=== PATIENT | female | born 1930 | race Caucasian/White ===

== ENCOUNTER 2017-09-03 15:03 | Inpatient (IN) | payer MEDICARE, OTHER ==
[~2017-09-03] VITALS: Ht 147.3 cm; Wt 79.4 kg
[~2017-09-03 15:03] MED LIST: ALBUTEROL SULF8.5 GM INH; ALEVE220 MG PO; ASPIR 8181 MG PO; CEFPODOXIME PR200 MG PO; CIPROFLOXACIN500 MG PO; CITRACAL + BON1 EACH PO; CITRACAL + D M1 EACH PO; COMBIVENT RESPIM4 GM INH; DILTIAZEM 24HR120 MG PO; DILTIAZEM 24HR240 M1 PO; DILTIAZEM 24HR240 MG PO; FELODIPINE ER5 MG PO; FUROSEMIDE20 MG/2 ML PO; GABAPENTIN100 MG PO; GLIPIZIDE XL10 MG PO; LANTUS SOL100 UNIT/1 SQ; LANTUS100 UNITS/ SUB-Q; LISINOPRIL-HCT1 EACH PO; LISINOPRIL10 MG PO; LORAZEPAM0.5 MG PO; MAPAP325 MG PO; MELATONIN3 MG PO; METFORMIN HCL500 MG PO; METOPROLOL SUC100 MG PO; METOPROLOL SUCC25 MG PO; METOPROLOL SUCC50 MG PO; METOPROLOL TART25 MG PO; NITROFURANTOIN100 M1 PO; NORCO 5-325 TA1 EACH PO; OMEPRAZOLE20 MG PO; POTASSIUM CHLO10 MEQ PO; TORSEMIDE5 MG PO; UNITHROID100 MCG PO; WOMEN'S DAILY1 EACH PO; ZOFRAN ODT4 MG SL
--- NOTE | 2017-09-03 19:02 | NUR ---
PT ARRIVED VIA STRETCHER FROM ED. DAYSJENNI RN IS HELPING PT GET SETTLED IN.
--- NOTE | 2017-09-03 21:13 | NUR ---
PATIENT 1 PERSON ASSIST TO THE BEDSIDE COMMODE USING WALKER. RN CHEYANNE HELPED PATIENT FROM BEDSIDE COMMOED TO SITTING BY THE BED. RN CHEYANNE GAVE JELLO, CRACKERS AND PEANUT BUTTER. PATIENT ALSO ASKED MILK. CAll button within reach.
--- NOTE | 2017-09-03 21:40 | NUR ---
ROUNDING CHARGE NURSE NOTE: PT ADMITED TO ROOM 112 VIA STRETCHER FROM ED. TELE#[address], RECEIVED 1LITER IVF BOLUS AND 1GR ROCEPHIN IV, TOLERATED WELL. HAS BEEN UP TO BSC, VOIDED YELLOW URINE. ONE PERSON ASSIST. TOLERATED WELL. CBG 90 RECEIVED CRACKERS, PB AND MILK AT HER REQUESTS. PT DECLINES TO USE HOSP GOWN OR HOSP NON SKID SOCKS. WEARING PERSONAL NON SKID SOCKS. PT WAS PLACED ON 1L O2 NC ON ADMIT DUE TO HER SATS WERE 80% ON ROOM AIR AND AFTER CDB 10X'S IT ONLY WENT UP TO 84%. SATS 93-94% ON IL, DENIES SOB.
--- NOTE | 2017-09-03 21:50 | NUR ---
IN ROOM TO ASSESS PT AND GIVE MEDICATIONS. PT DENIES PAIN AND NEEDS AT THIS TIME. CALL LIGHT IS WITHIN REACH.
--- NOTE | 2017-09-03 23:20 | NUR ---
PT IS RESTING IN BED WITH EYES CLOSED, RESPIRATIONS EVEN AND NONLABORED WITH CALL LIGHT IN REACH.
--- NOTE | 2017-09-04 01:16 | NUR ---
HELPED PT TO BEDSIDE COMMODE AND ADMINISTERED TYLENOL FOR BACK/NECK/HEAD ACHE. ALSO GAVE PT A HEAT PAD FOR HER NECK. PT IS SITTING AT THE BEDSIDE AT THIS TIME WITH CALL LIGHT WITHIN REACH.
--- NOTE | 2017-09-04 03:22 | NUR ---
PT IS RESTING WITH EYES CLOSED, RESPIRATIONS EVEN AND NONLABORED. CALL LIGHT IS WITHIN REACH.
--- NOTE | 2017-09-04 04:36 | NUR ---
PT IS REQUESTING TYLENOL FOR A HEADACHE. ADVISED PT THE EARLIES SHE CAN HAVE ANOTHER IS IN ABOUT 15 MINUTES. WILL RETURN WITH TYLENOL AND HEAT PAD.
--- NOTE | 2017-09-04 04:55 | NUR ---
ADMINISTERED TYELONOL FOR PT'S HEADACHE AND BROUGHT HER A NEW HEAT PAD. PT DENIES FURTHER NEEDS AT THIS TIME. CALL LIGHT IS WITHIN REACH.
--- NOTE | 2017-09-04 06:45 | NUR ---
PT REPORTS, HAVING A HEAVY CHEST AND NAUSEA AND AN OVER ALL FEELING ON NOT FEELING WELL. TOOK VS AND ADMINISTERED ZOFRAN. WILL NOTIFY DR DUMONT AND CONTINUE TO MONITOR.
--- NOTE | 2017-09-04 07:29 | NUR ---
SPOKE WITH DR DUMONT ABOUT PT'S SX, NO FURTHER ORDERS AT THIS TIME.
--- NOTE | 2017-09-04 07:35 | NUR ---
PT APPEARS TO BE SLEEPING, CALL BUTTON IN HAND. BOARD UPDATED.
--- NOTE | 2017-09-04 08:30 | NUR ---
PATIENT USED CALL BUTTON. FINISHED WITH BREAKFAST, ASSISTED BACK INTO BED, PATIENT ALSO USED TRAPEZE ABOVE BED WITH BOTH HANDS. FRESH ICE WATER AND HOT PACK FOR NECK. TRASH EMPTIED AND ROOM TIDIED.ENRRIQUE ALDANA IN ROOM. CALL LIGHT IN REACH. NO OTHER NEEDS.
--- NOTE | 2017-09-04 08:43 | NUR ---
PT IN BED. AWAKE, ALERT, ORIENTED X 3. DENIED PAIN OR NAUSEA AT THIS TIME. GAVE AM MEDICATIONS. PERSONAL SUPPLIES AND CALL LIGHT IN REACH.
--- NOTE | 2017-09-04 09:20 | NUR ---
MED REC COMPLETE WITH [facility] REFILL HISTORY.
--- NOTE | 2017-09-04 10:39 | NUR ---
PT AMBULATED IN HALLS WITH PHYSICAL THERAPIST. PER PHYSICAL THERAPIST, PT AMBULATED ON RA, AND SPOT CHECKS OF OXYGEN SATURATION LEVEL WERE WNL. PT REMAINS ON RA. WILL CONTINUE TO MONITOR.
--- NOTE | 2017-09-04 10:50 | NUR ---
PT SITTING UP AT EDGE OF BED, VISITING WITH FRIENDS. PERSONAL SUPPLIES AND CALL LIGHT IN REACH. PT DENIED NEEDS.
--- NOTE | 2017-09-04 11:45 | NUR ---
1PERSON ASSIST TO BEDSIDE COMODE. RN KATYA IN ROOM, PT STATES SHE HAS HAD THE SAME DR FOR 2 1/2 YEARS AND IS VERY INTERESTED INTERESTED IN THE INFO KATYA JUST GAVE HER REGARDING DIABETES CONTROL. PT SITTING ON EDGE ON BED FOR LUNCH. THIS BUFFING MACHINE OPERATOR SEMIAUTOMATIC GATHERED HAIR AND ORAL CARE PRODUCTS FOR AFTER LUNCH SHOWER. CALL LIGHT IN REACH. NO OHTER NEEDS AT THIS TIME.
--- NOTE | 2017-09-04 12:40 | NUR ---
SALINE LOCKED PT'S IV, PT UP TO SHOWER WITH ASSISTANCE FROM TOBY MONTEMAYOR.
--- NOTE | 2017-09-04 13:07 | NUR ---
1 PERSON ASSIST TO SHOWER. THIS FRONT WINDOW CASHIER WASHED AND DRIED PT THOROUGHLY BEFORE DRESSING. PATIENT WEARING HOSPITAL GOWN. HER GOWN AND HOUSE COAT ARE IN PERSONAL BAG IN CLOSET, ALONG WITH LANYARD AND KEYS. PT BACK TO BED. VERY SATISFIED WITH SHOWER. CALL LIGHT IN REACH.
--- NOTE | 2017-09-04 13:38 | NUR ---
PT IN BED, WATCHING THE WEATHER CHERYL ON TV. PERSONAL SUPPLIES IN REACH, IS CALL BUTTON. PT STATED THAT SHE ENJOYED HER SHOWER.
--- NOTE | 2017-09-04 14:24 | NUR ---
PATIENT APPEARS TO BE SLEEPING SOUNDLY IN BED. PATIENT CLAIMS THIS NAP WAS THE BEST SLEEP SHES HAD IN A LONG TIMEVITALS AND I/OS DONE. DIETARY IN ROOM. CALL LIGHT IN REACH.
--- NOTE | 2017-09-04 15:35 | NUR ---
PT IN BED, C/O HEADACHE. GAVE ACETAMINOPHEN 500 MG PO PRN C/O 6/[address] DUMONT IN TO SEE PT. STATED THAT PT IS NOT GOING TO DISCHARGE TO HOME TODAY, BUT MAY POTENTIALLY DISCHARGE TO HOME TOMORROW.
--- NOTE | 2017-09-04 15:37 | NUR ---
PER DR. DUMONT, IVF RATE DECREASED TO 50 CC/HR.
--- NOTE | 2017-09-04 16:18 | NUR ---
PT UP, AMBULATED IN HALLS WITH TOBY MONTEMAYOR. TOLERATED WELL.
--- NOTE | 2017-09-04 16:33 | NUR ---
1 PERSON ASSIST PATIENT- AMBULATION IN ORTEZ @ 15 MIN. PT TOLERATED WELL. NAUSEOUS UPON RETURN TO ROOM. PT TALKED TO THIS INNER TUBE CUTTER FOR SEVERAL MINUTES ABOUT HER CHILDREN AND . SITTING ON EDGE OF BED UP TO TABLE UNTIL DINNER. FRESH ICE WATER AND WRM BLANKET FOR SHOULDERS. CALL LIGHT IN REACH.
--- NOTE | 2017-09-04 17:10 | NUR ---
PATIENT CALLED FOR ASSTANCE TO COMMODE. TOBY WOO FOR BLOOD SUGAR CHECK. PATIENT ON EDGE OF BED WITH TABLE ON FRONT FOR DINNER. VITALS DONE. PATIENT IS COLD, ROBE ON AND BLANKET ON LEGS. ROOM IS 75 DEGREES. CALL LIGHT IN REACH.
--- NOTE | 2017-09-04 17:42 | EKG ---
[facility] [address] [place] [address] Signed Sinus rhythm with occasional premature ventricular complexes Left axis deviation Right bundle branch block Minimal voltage criteria for LVH, may be normal variant Abnormal ECG When compared with ECG of 03-OCT-2016 18:53, premature atrial complexes are no longer present Confirmed by ANTWAN DUMONT MD ([id number]) on 09/04/2017 5:42:27 PM Electronically Signed By: ANTWAN DUMONT MD 09/04/17 1742 PATIENT NAME: KETTY AMADOR Electrocardiogram DATE OF : [birth year] PHYSICIAN: ANTWAN DUMONT MD REPORT #: [id number] REPORT IS CONFIDENTIAL AND NOT TO BE RELEASED WITHOUT AUTHORIZATION
--- NOTE | 2017-09-04 17:57 | NUR ---
PATIENT CALLED TO BE ASSISTED BACK TO BED AFTER DINNER. STILL VERY COLD. WARM BLANKET AND HOT PACK ON BACK OF NECK. PILLOW UNDER LEGS. RN KATYA IN ROOM TALKING TO PT. CALL LIGHT IN REACH. NO OTHER NEEDS AT THIS TIME.
--- NOTE | 2017-09-04 18:38 | NUR ---
PT HAS LR INFUSING AT 50 CC/HR. GAVE ACETAMINOPHEN THIS AFTERNOON FOR C/O HEADACHE. PT UP WITH 1 PERSON ASSIST WITH FWW. AMBULATED IN HALLS X 2. ADA DIET, TOLERANCE FAIR TO GOOD.
--- NOTE | 2017-09-04 19:00 | NUR ---
IN ROOM FOR REPORT, PT IS AWAKE IN BED AND HAS A VISITOR IN THE ROOM. PT DENIES NEEDS AT THIS TIME. CALL LIGHT IS WITHIN REACH.
--- NOTE | 2017-09-04 19:40 | NUR ---
SPOKE WITH DR DUMONT ABOUT GETTING THE PT 3 MG MELATONIN AT HS, PT STATES SHE TAKES IT AT HOME. HE WILL PUT THE ORDER IN.
--- NOTE | 2017-09-04 21:58 | NUR ---
HELPED PT TO RESTROOM AFTER MEDICATIONS WERE GIVEN AND ASSESSMENT COMPLETE. PT IS BACK TO BED AND HAS FRESH WATER AT BEDSIDE. CALL LIGHT IS WITHIN REACH.
--- NOTE | 2017-09-04 22:52 | NUR ---
Medicated with tylenol 500mg po c/o 5/10 h/a. In bed, no other requests
--- NOTE | 2017-09-05 00:12 | NUR ---
PT STATES SHE STILL FEELS OFF AND HAS NAUSEA. ADMINISTERED ZOFRAN AND BROUGHT PT SUGAR FREE JELLO, PEANUT BUTTER AND CRACKERS. PT DENIES FURTHER NEEDS AT THIS TIME.
--- NOTE | 2017-09-05 00:34 | NUR ---
PATIENT CALLED WANTS TO BE BACK IN BED FROM SITTING. NO OTHER NEEDS. CALL BUTTON WITHIN REACH.
--- NOTE | 2017-09-05 02:45 | NUR ---
PATIENT CALLED TO USE THE BATHROOM. EVERYTIME THIS SEED PRODUCTION FIELD SUPERVISOR GETS IN THE PATIENT'S ROOM, THE PATIENT IS ALREADY UP SITTING BY THE BED. USING WALKER 1 PA. PATIENT ALWAYS C/O DIZZINES MOSTLY WHEN SHE LAYS DOWN ON BED. ENRRIQUE RANDALL NOTIFIED. CALL BUTTON WITHIN REACH.
--- NOTE | 2017-09-05 04:11 | NUR ---
PT IS RESTING WITH EYES CLOSED, RESPIRATIONS EVEN AND NONLABORED. CALL LIGHT IS WITHIN REACH.
--- NOTE | 2017-09-05 05:25 | NUR ---
PT HAD DIFFICULT SLEEPING EVEN WITH THE 3MG MELATONIN. BS AT HS WAS 158. PT HAD NAUSEA ONCE REQUIRING ZOFRAN. LR IS INFUSING AT 50 MLS/HR. PT IS A 1PA WITH WALKER TO RESTROOM. PT CONTINUES TO HAVE ABDOMINAL PAIN ALONG WITH BACK/NECK PAIN AND HAD TYLENOL ONCE DURING THE NIGHT.
--- NOTE | 2017-09-05 07:04 | NUR ---
HELPED PT TO RESTROOM AND BACK TO BED.
--- NOTE | 2017-09-05 07:10 | NUR ---
RECIEVED BEDSIDE REPORT FROM ENRRIQUE RANDALL. PT AWAKE, IN BED. PERSONAL SUPPLIES AND CALL BUTTON IN REACH. DENIED NEEDS AT THIS TIME.
--- NOTE | 2017-09-05 07:31 | NUR ---
PT IN BED, BROUGHT PT HER BREAKFAST. CHECKED PT'S B.
--- NOTE | 2017-09-05 07:52 | NUR ---
PT SITTING UP AT EDGE OF BED, EATING BREAKFAST. PERSONAL SUPPLIES AND CALL LIGHT IN REACH.
--- NOTE | 2017-09-05 08:35 | NUR ---
RT IN ROOM WORKING WITH PATIENT AT THIS TIME.
--- NOTE | 2017-09-05 10:00 | NUR ---
PATIENT RESTING IN BED WITH EYES CLOSED. PT IN ROOM ASKED FOR HELP WAKING PATIENT UP. THIS ASSOCIATE FINANCIAL ADVISOR WAS ABLE TO WAKE PATIENT UP BY SPEAKING LOUDLY AND RUBBING PATIENTS ARM. PATIENT WAS STARTLED AND SEEMED TO BE UPSET THAT SHE WAS BEING WOKEN UP. PATIENT'S FACE IS FLUSHED AND WARM TO TOUCH. NO FEVER. PATIENT WASHED HANDS AND FACE WITH COOL WASH CLOTH. PT IN ROOM TO WORK WITH PATIENT. THIS ASSOCIATE FINANCIAL ADVISOR TALKED TO PATIENT ABOUT WASHING UP LATER TODAY. NO OTHER NEEDS AT THIS TIME.
--- NOTE | 2017-09-05 10:24 | NUR ---
PT WORKED WITH PHYSICAL THERAPIST, AMBULATED IN HALLS WITH FWW WITH 1 PERSON ASSIST. PT NOW SITTING UP AT EDGE OF BED. PERSONAL SUPPLIES AND CALL LIGHT IN REACH.
--- NOTE | 2017-09-05 10:30 | NUR ---
SPOKE WITH PATIENT AT LENGTH REGARDING LIVING SITUATION. PATIENT LIVES IN HOME WITH RAMP. SHE USES A SEATED WALKER IN THE HOME AND WHEN SHE GOES OUT. PATIENT STILL DRIVES IN TOWN. STATES IF SHE NEEDS OUT OF TOWN SHE HAS SONS OR FRIENDS DRIVE. PATIENT STATES BOTH SONS WORK. ONE WORKS NIGHTS IN [employer] AND SLEEPS DURING THE DAY. THE OTHER WORKS DAYS IN TOWN. ONE SON WAS RECENTLY TREATED FOR COLON CANCER. SHE STATES THEY HELP EACH OTHER OUT. SHE STATES HER SONS SHOP AND FIX MOST MEALS. PATIENT STATES SHE IS . SHE SEES NO BARRIERS TO HOME AT DISCHARGE AT THIS TIME. SHE DID STATE THAT THEY THINK SHE MAY NEED GALLBLADDER SURGERY AT SOME POINT, SHE HAD QUESTIONS REGARDING THIS THAT WERE ANSWERED.
--- NOTE | 2017-09-05 11:45 | NUR ---
THIS GREENHOUSE STAFF ASSISTED PATIENT FROM THE RESTROOM TO HER BED. PATIENT IS SITTING ON THE SIDE OF HER BED. RN IN ROOM. THIS GREENHOUSE STAFF ORDERED LUNCH FOR PATIENT. CALL LIGHT WITHIN REACH. NO OTHER NEEDS AT THIS TIME.
--- NOTE | 2017-09-05 11:56 | NUR ---
PT SITTING UP AT EDGE OF BED. REPORTED THAT SHE TOOK A NAP THIS MORNING, AND WHEN SHE WOKE UP, CNAs AND CLAUDIO PHYSICAL THERAPIST WERE IN ROOM, AND THIS "STARTLED" HER. PT STATED THAT SHE AMBULATED IN HALLS WITH CLAUDIO PHYSICAL THERAPIST. PERSONAL SUPPLIES IN REACH, IS CALL LIGHT.
--- NOTE | 2017-09-05 12:26 | NUR ---
SET UP PATIENT FOR LUNCH AT BEDSIDE. PATIENT REFUSED SHOWER AND CHANGE OF GOWN DUE TO HAVING ONE YESTERDAY. TOOTHBRUSH AND TOOTHPASTE SET UP IN BATHROOM FOR ORAL CARE NEXT TIME PATIENT IS UP. CALL LIGHT IN REACH, NO OTHER NEEDS AT THIS TIME.
--- NOTE | 2017-09-05 12:27 | NUR ---
PATIENT REQUESTED A RELEASE OF INFORMATION SO SHE SHOULD HAVE A COPY OF HER MEDICAL RECORD FOR THIS STAY SENT TO HER AT HOME. MELLISA COMPLETED, SIGNED AND TURNED IN TO MEDICAL RECORDS.
[2017-09-05] MEDS ORDERED: CEPHALEXIN500 MG PO ×2 (13:13→13:17)
--- NOTE | 2017-09-05 13:30 | NUR ---
SPOKE WITH DR. DUMONT, RECIEVED VERBAL ORDER TO GIVE IV ROCEPHIN SCHEDULED FOR 1700 NOW.
--- NOTE | 2017-09-05 13:46 | NUR ---
PATIENT UP TO BATHROOM AND BACK TO BED WITH 1 PERSON ASSIST AND FRONT WHEEL WALKER. REPOSITIONED PATIENT TO RIGHT SIDE. PILLOW UNDER PATIENTS KNEES. CALL LIGHT IN PLACE. NO OTHER NEEDS AT THIS TIME.
--- NOTE | 2017-09-05 14:04 | NUR ---
GAVE PT DISCHARGE INSTRUCTIONS. QUESTIONS ASKED AND ANSWERED. PT VERBALIZED UNDERSTANDING. THIS RN CALLED REBECCA, PHARMACIST TO LET HER KNOW PT IS READY FOR EDUCATION REGARDING MEDICATIONS. REBECCA VERBALIZED UNERSTANDING.
--- NOTE | 2017-09-05 15:11 | NUR ---
ASSISTED PT IN CHANGING INTO STREET CLOTHING AND GATHERING PERSONAL SUPPLIES. PT SITTING UP AT EDGE OF BED.
== END 2017-09-05 15:20 | disposition home or self-care (01) | DRG 690 ==
LOC: ED 15:03 → MS 15:04 → ED 18:00 → MS 18:00
PROVIDERS: ADMIT Internal Medicine
DX: N10 Acute pyelonephritis (principal); B96.20 Unspecified Escherichia coli [E. coli] as the cause of diseases classified elsewhere; I10 Essential (primary) hypertension; E11.9 Type 2 diabetes mellitus without complications; R00.1 Bradycardia, unspecified; K21.9 Gastro-esophageal reflux disease without esophagitis; E03.9 Hypothyroidism, unspecified; G89.4 Chronic pain syndrome; Z88.0 Allergy status to penicillin; Z79.4 Long term (current) use of insulin; Z79.84 Long term (current) use of oral hypoglycemic drugs
CPT/HCPCS: 74176; 80048; 80053; 81001; 83690; 83735; 85025; 87077; 87088; 87186; 87502; 93005; 93010; 97110; 97116; 97162; J0696; J1650; J2405; J7040; J7120

== ENCOUNTER 2017-09-24 18:52 | Observation (INO) | payer MEDICARE, OTHER ==
[~2017-09-24] VITALS: Ht 147.3 cm; Wt 79.8 kg
--- OUTSIDE RECORDS SUMMARY | ~2017-09-24 | XMS | Clinical Summary ---
Demographics + + + | Home Phone | | + + + | Preferred Language | Unknown | + + + | Marital Status | | + + + | Samaritan Affiliation | 1001 | + + + | Race | Unknown | + + + | Ethnic Group | Unknown | + + + Author + + + | Author | [employer] | + + + | Organization | [employer] | + + + | Address | Unknown | + + + | Phone | Unavailable | + + + Support + + + + + | Name | Relationship | Address | Phone | + + + + + | Chadwick Vázquez | ECON | [place], | | | | | [place] [address] | | + + + + + Care Team Providers + +------+ + | Care Residential Therapist Name | Role | Phone | + +------+ + | Damion Quispe MD | PP | | + +------+ + Allergies Not on File Current Medications Not on file Active Problems Not on file Social History + +-------+ +--------+------+ | Tobacco Use | Types | Packs/Day | Years | Date | | | | | Used | | + +-------+ +--------+------+ | Never Assessed | | | | | + +-------+ +--------+------+ + + + | Sex Assigned at | Date Recorded | | | | + + + | Not on file | | + + + Plan of Treatment Not on file Results Not on filefrom Last 3 Months"
--- OUTSIDE RECORDS SUMMARY | ~2017-09-24 | XMS | Clinical Summary ---
Demographics + + + | Address | [address] | | | [place] [address] | + + + | Home Phone | | + + + | Preferred Language | Unknown | + + + | Marital Status | Single | + + + | Shinto Affiliation | ADV | + + + [...] [id number] [place] | | | | | [id number] | | + + + + + Care Team Providers + +------+ + | Care Chief Technical Officer Name | Role | Phone | + +------+ + | Damion Quispe MD | PP | Unavailable | + +------+ + Source Comments [facility] is fully live on both [facility] and [facility] Allergies No Known Allergies Current Medications + [...]
[~2017-09-24 18:52] MED LIST changes: +CEPHALEXIN500 MG PO
[2017-09-24] MEDS ORDERED: CITRACAL-VIT D1 EAC1 PO (19:35)
[2017-09-24] MEDS ORDERED: COL-RITE100 MG PO (19:36)
[2017-09-24] MEDS ORDERED: REFRESH TEARS15 ML OU (19:36)
--- NOTE | 2017-09-24 23:10 | NUR ---
PT ARRIVED ON STRETCHER, ON 2 LNC. PT USED COMMODE AND IS BACK IN BED. SHE ATE SOME CRACKERS AND PEANUT BUTTER. PT IS ORIENTED TO ROOM AND HAS NO COMPLAINTS OF PAIN OR FURTHER NEEDS.
--- NOTE | 2017-09-24 23:25 | NUR ---
VITALS DONE AND CHARTED. HELPED PT PUT ON ATTENDS AND USE THE BEDSIDE COMMODE. HELPED HER BACK TO BED. BEDSIDE TABLE AND CALL LIGHT WITHIN REACH. PER PT REQUEST WE GOT HER CRACKER AND PEANUT BUTTER. ALSO FRESH ICE WATER GIVEN.
--- NOTE | 2017-09-25 00:30 | NUR ---
PATIENT RESTING IN BED, BREATHING IS EVEN AND UNLABORED. DENIES NEEDS AT THIS TIME. ASSESSMENT DONE, CALL LIGHT WITHIN REACH.
--- NOTE | 2017-09-25 01:54 | NUR ---
VITALS AND I&OS DONE AND CHARTED.BEDSIDE TABLE AND CALL LIGHT WITHIN REACH.
--- NOTE | 2017-09-25 02:04 | NUR ---
PATIENT RESTING COMFORTABLY IN BED, BREATHING IS EVEN AND UNLABORED. FLACC SCORE OF 0. CALL LIGHT WITHIN REACH.
--- NOTE | 2017-09-25 03:07 | NUR ---
PATIENT REPORTS 7/10 HEADACHE, PRN TYLENOL GIVEN AND HOTPACK FOR NECK, PATIENT STATES "THAT IS WHAT I DO AT HOME AND IT SEEMS TO HELP." DENIES FURTHER NEEDS. CALL LIGHT WITHIN REACH.
--- NOTE | 2017-09-25 05:49 | NUR ---
PATIENT SITTING IN CHAIR, BREATHING IS EVEN AND UNLABORED. REPORTS NAUSEA, PRN ZOFRAN GIVEN. DENIES FURTHER NEEDS. CALL LIGHT WITHIN REACH.
--- NOTE | 2017-09-25 06:00 | NUR ---
PATIENT'S NIGHT WAS UNEVENTFUL. SHE HAS BEEN RESTING THROUGHOUT SHIFT. VSS, URINE OUTPUT QS. LUNGS ARE CLEAR, REMAINS ON 2L O2. REDDNENED RIGHT LEG NOTED, WARM TO TOUCH, RECEIVING IV ABX. SBA TO BEDSIDE COMODE, INCONTINENT OF URINE AT TIMES. IV FLUIDS INFUSING. NO ACUTE CHANGES.
--- NOTE | 2017-09-25 06:43 | NUR ---
PATIENT RESTING COMFORTABLY IN BED, BREATHING IS EVEN AND UNLABORED. FLACC SCORE OF 0. REMAINS ON 2L O2. UPDATED DR. CAMACHO REGARDING PATIENT'S CONTINUED HEADACHE WITHOUT RELIEF FROM TYLENOL. RECEIVED ORDER FOR PRN MOTRIN. CALL LIGHT WITHIN REACH.
--- NOTE | 2017-09-25 07:39 | NUR ---
REPORT RECEIVED FROM DEREK RN OUTSIDE PATIENT ROOM TO ALLOW PATIENT TO SLEEP. 2L [address] NC [address]. ALL QUESTIONS ANSWERED. NO NEEDS AT THIS TIME.
--- NOTE | 2017-09-25 07:57 | NUR ---
PT IS BACK TO BED FROM COMMODE. PT COMPLAINS OF BEING WEAK AND STATES, "IT'S MY BLOOD SUGAR, I KNOW IT IS." BLOOD SUGAR WAS TAKEN AND DOCUMENTED. BS WAS 130, WILL INFORM RN. INFORMED PT TO CALL IF SHE NEEDS ANYTHING. CALL LIGHT IS IN REACH.
--- NOTE | 2017-09-25 08:57 | NUR ---
PT C/O CHEST HEAVINESS. HOSPITALIST NOTIFIED. EKG ORDERED AND D/C IVF. PT SALINE LOCKED. RESP THERAPIST DOING EKG NOW.
[2017-09-25] MEDS ORDERED: NORVASC2.5 MG PO (10:13)
--- NOTE | 2017-09-25 10:14 | NUR ---
MED REC COMPLETE
--- NOTE | 2017-09-25 10:46 | NUR ---
PT SLEEPING COMFORTABLY IN BED AT THIS TIME. LIGHTS DIMMED AND DOOR SLID CLOSED 3/[address] TO ALLOW QUIET REST TIME.
--- NOTE | 2017-09-25 13:19 | NUR ---
pt sleeping in bed with lights dimmed.
--- NOTE | 2017-09-25 13:38 | NUR ---
PATIENT IN BED, DID VS, PATIENT SAID SHE NEEDED TO USE THE RESTROOM, SAID SHE WAS INCONTINENT BUT THERE WAS NOTHING IN HER UNDERWEAR.
--- NOTE | 2017-09-25 14:57 | NUR ---
pt sitting up in recliner on phone talking to friend/family member. TOBY Camacho gave patient shower.
--- NOTE | 2017-09-25 18:16 | NUR ---
PT ASSISTED BACK TO BED FROM BATHROOM BY ROUND CUTTER OPERATOR. PATIENT PARTICULAR ABOUT PLACEMENT OF BODY AND PERSONAL ITEMS. PHONE AND CALL LIGHT WITHIN REACH. PATIENT WOULD LIKE TO REST AFTER VISITORS LEFT. NO BEDSIDE REPORT REQUESTED IF PATIENT SLEEPING.
--- NOTE | 2017-09-25 18:25 | NUR ---
SBA/1PA FWW. UP TO BATHROOM/BSC. ORIENTED. ACCU CHECKS. ADA DIET. INCONTINENT OF URINE AT TIMES. ATTENDS IN PLACE. ROCEPHIN DAILY. SALINE LOCKED. PT/OT. TYLENOL GIVEN FOR HEADACHE THIS EVENING.
--- NOTE | 2017-09-25 19:00 | NUR ---
PT IS RESTING AND REQUESTED NOT TO BE WOKEN UP FOR SHIFT CHANGE. RECEIVED REPORT AND WILL CHECK IN WITH HER LATER.
--- NOTE | 2017-09-25 20:22 | NUR ---
IN PT ROOM, VITALS COMPLETE AT THIS TIME WNL. HANDOFF REPORT RECEIVED FROM ENRRIQUE RANDALL AT THIS TIME, PT ANXIOUS RE VISITORS TODAY, C/O SOME HEAVINESS IN CHEST. DISCUSSED VITALS WNL, UPDATED RE PLAN OF CARE. PT LYING IN BED, REQUESTING ICE WATER, NO ADDL REQUESTS. CALL LIGHT IN REACH.
--- NOTE | 2017-09-25 20:40 | NUR ---
PT ASSESSMENT COMPLETE. PT ALERT AND ORIENTED X 3, C/O FEELING WARM, AFEBRILE AT THIS TIME. ICE PACK GIVEN TO PT, THERMOSTAT ADJUSTED. LUNGS CLEAR THROUGHOUT ALL LOBES. PT DENIES NAUSEA. PT C/O CONSTIPATION, NOT BEING ABLE TO HAVE REGULAR BM. NIO BOWEL ROUTINE ORDERED. PT GIVEN ICE WATER REQUESTED. CALL LIGHT IN REACH, NO ADDL REQUESTS AT THIS TIME. LEGS ELEVATED WITH BED. REDNESS NOTED IN RIGHT LOWER EXTREMITY. TRACE EDEMA NOTED.
--- NOTE | 2017-09-25 21:42 | NUR ---
HELPED PT GO TO THE BATHROOM AND BACK TO THE CHAIR WITH HER WALKER. FRESH WATER GIVEN. BEDSIDE TABLE AND CALL LIGHT WITHIN REACH.
--- NOTE | 2017-09-25 22:29 | NUR ---
HELPED PT BACK TO HER BED FROM THE CHAIR PER HER REQUEST. BEDSIDE TABLE AND CALL LIGHT WITHIN REACH.
--- NOTE | 2017-09-25 22:53 | NUR ---
IN PT ROOM FOR MEDICATION ADMINISTRATION, PRN EYE DROPS ADMINISTERED. PT ASSISTED TO REPOSITION IN BED W ADDITIONAL PILLOW. NO ADDITIONAL REQUESTS. CALL LIGHT IN REACH.
--- NOTE | 2017-09-26 01:43 | NUR ---
CALL LIGHT ANSWERED, PT C/O WHEEZING. SPO2 88% ON ROOM AIR, 2L OXYGEN BY NC BACK ON PT PT HAS REMOVED. SPO2 BACK TO 94% W OXYGEN ADMINISTRATION. PT GIVEN IS AND INSTRUCTED ON USE, 750 ML BEST EFFORT.
--- NOTE | 2017-09-26 02:07 | NUR ---
BACK IN PT ROOM WITH RT HAYDEE NICHOLE ASSESSMENT COMPLETE, LUNGS CLEAR THROUGHOUT ALL LOBES, OXYGEN TITRATED TO 1L, SPO2 97%. PT OUT OF ROOM FOR WALK AT THIS TIME WITH CHIKI KEBEDEW. SPO2 90% WITH AMBULATION. PT BACK IN ROOM, ASSISTED TO RESTROOM FOR VOID. INSTRUCTED TO USE CALL LIGHT. WILL CONTINUE TO MONITOR.
--- NOTE | 2017-09-26 02:16 | NUR ---
CALL LIGHT ANSWERED, PT ASSISTED BACK TO BED WITH DELIO FWW. PT ASSISTED TO REPOSITION. ON 1L OXYGEN BY NC. PERSONAL SUPPLIES AND CALL LIGHT IN REACH.
--- NOTE | 2017-09-26 04:21 | NUR ---
BELT WORKER SEPTEMBER REPORTED THAT PT C/O NECK PAIN. ADMINISTERED 650 MG PRN TYLENOL. PT LYING IN BED, HOB ELEVATED C/O COUGHING. PT USING IS, GIVEN FRESH ICE WATER. OXYGEN 1L NC ON. CALL LIGHT IS IN REACH.
--- NOTE | 2017-09-26 05:34 | NUR ---
PT USING CALL LIGHT THROUGHOUT SHIFT. C/O NECK PAIN, RECEIVED PRN TYLENOL X 1. PT C/O WHEEZING THROUGHOUT SHIFT DESPITE NO WHEEZES AUSCULTATED. PT ON 1L OXYGEN BY CHELSEA. DELIO WITH FWW TO RESTROOM FOR VOIDS, AND AMBULATED HALLWAY X 1. NO CHANGE IN REDNESS IN RLE, LEGS ELEVATED IN HOSPITAL BED.
--- NOTE | 2017-09-26 06:24 | NUR ---
CHECKED ON PT, PT SLEEPING, EYES CLOSED, BREATHING NON-LABORED, 1L OXYGEN NC ON.
--- NOTE | 2017-09-26 06:45 | NUR ---
CALL LIGHT ANSWERED, PT ASSISTED TO RESTROOM FOR VOID W FWW, SBA. PT INSTRUCTED TO USE CALL LIGHT WHEN FINISHED.
--- NOTE | 2017-09-26 08:31 | NUR ---
PATIENT UP TO THE BATHROOM WITH STAND BY ASSIST WITH FWW. PATIENT REFUSED SHOWER TODAY DUE TO HAVING ONE YESTERDAY.
--- NOTE | 2017-09-26 09:00 | NUR ---
MORNING ASSESSMENT AND MEDICATIONS DUE. PT UP IN BED, TALKING WITH HUMAN RESOURCES PSYCHOLOGIST AND RN. ASSESSMENT DONE. PIV WAS NOTED TO BE IN LEFT FORARM NOT LEFT AC. PT GERMANIA OUT IN PAIN WITH FLUSH. REDNESS NOTED. PIV DC'D PER PROTOCOL, WNL. NEW PIV STARTED PER PROTOCOL IN LEFT AC. MEDICATIONS GIVEN (SEE MAR). RT STOPPED BY TO TALK WITH PT. PT COMPLAINS OF BEING TOO TIRED TO WORK WITH RT. THIS RN OFFERED TO PUT A "NAP TIME" SIGN ON THE DOOR SO SHE WOULD NOT BE INTURRUPTED, BE DECLINES. BED RAILS UP. CALL LIGHT WITHIN REACH. PT WORRIED ABOUT IV. 2ND FLUSH DONE, BRISK BLOOD RETURN NOTED. PT REASSURED THAT PIV LOOKS GREAT, TAPE READJUSTED. PT STATES SHE HAS NO ADDITIONAL REQUESTS OR COMPLAINTS AT THIS TIME. BED RAILS UP. CALL LIGHT WITHIN REACH.
--- NOTE | 2017-09-26 10:07 | NUR ---
THIS RN TO BEDSIDE. PT FOUND UP IN RESTROOM WITHOUT OXYGEN IN PLACE. PT REPORTS FEELING WEEK. PT REMINDED THAT SHE NEEDS TO CALL FOR A NURSE WHEN GETTING OUT OF BED. NC BROUGHT TO RESTOROOM. PT STATES "NO, I'M NOT PUTTING THAT BACK ON. GET IT OUT OF HERE." O2 SATURATION MONITOR FOUND, PT O2 SAT AT 94%. THIS RN AGREES WITH PT TO LEAVE O2 OFF WHILE SITTING ON TOILET BUT REAPPLY O2 BY NC FOR AMBULATION.
--- NOTE | 2017-09-26 10:13 | NUR ---
PT READY TO MOVE BACK TO BED. O2 AT 2L NC APPLIED FOR AMBULATION. O2 SATURATION 98%. PT USES FWW BACK TO BED. PT ASKS TO SIT ON THE EDGE OF THE BED. PT STATES SHE MIGHT WANT TO MOVE BACK TO TOILET. CURTAIN STRETCHER WITH PT. PT STATES SHE WILL USE CALL LIGHT WHEN SHE IS READY TO USE TOILET AGAIN. CALL LIGHT WITHIN REACH.
--- NOTE | 2017-09-26 10:23 | NUR ---
THIS BATTER MIXER ASSISTED PATIENT TO THE RESTROOM. 1 PERSON SBA WITH FWW. THIS BATTER MIXER AND RN ASSISTED PATIENT FROM RESTROOM TO BED. PATIENT STATES THAT SHE FEELS WEAK. RN NOTIFIED AND RN IN ROOM TO ASSIST.
--- NOTE | 2017-09-26 10:38 | NUR ---
PT CONTINUES TO APPEAR ANXIOUS, PT IS RESTATING CONCERNS ("WHEN WILL I HAVE A BOWEL MOVMENET? WHAT ABOUT THIS THING IN MY ARM? (POINTS TO BLOOD BLISTER). I HAVE A LOT OF STRESSFUL THINGS GOING ON." CHARGE NURSE CONSULTED. THIS RN AND FOOD SERVICE MANAGER TO ROOM TO TALK WITH PT. PT EXPRESSESS RECENT STRESS IN HER LIFE STATING HER SON IS GOING THROUGH [facility]. PT DENIES FEELING STRESSED OR TENSE AT THIS TIME. PT STATES SHE HAD LORAZAPAM PERSCRIBED AFTER HER LAST HOSPITAL VISIT BUT "I HAVENT TAKEN IT AT ALL." PT STATES SHE RARELY SLEEPS FOR MORE THAN 2 HOURS. FALL PREVENTION POLICY REINFORCED WITH PT. PT VERBALIZES UNDERSTANDING OF FALL PREVENTION POLICY. PT DENIES THE NEED FOR ANTIANXIETY MEDICAITON AT THIS TIME. PT SITTING ON EDGE OF BED, O2 IN PLACE, 1L NC. CALL LIGHT WITHIN REACH.
--- NOTE | 2017-09-26 11:30 | NUR ---
PATIENT SITTIN UP IN CHAIR. OT IN ROOM. CALL LIGHT WITHIN REACH.
--- NOTE | 2017-09-26 11:44 | NUR ---
FOCUSED ASSESSMENT AND MEDICATIONS DUE. THIS RN TO BEDSIDE. PT UP WITH RT TO RESTROOM. PT BACK TO SIT ON EDGE OF BED. BED ALARM ON. ASSESSMENT DONE. INSULIN GIVEN (SEE MAR). PT EATING LUNCH. NEW WATER PROVIDED. BED ALARM ON. PT STATES NO ADDITIONAL REQUESTS OR COMPLAINTS AT THIS TIME. MAURA LIGHT WITHIN REACH.
--- NOTE | 2017-09-26 13:10 | NUR ---
PATIENT WORKING WITH PT.
--- NOTE | 2017-09-26 14:45 | NUR ---
PT CALL LIGHT ON. PT REQUESTS SOME TYLENOL FOR 4/10 HEADACHE PAIN. PT ALSO REPORTS ABDOMINAL PAIN "LIKE I USUALLY GET, IT COMES AND GOES" THAT TRAVELS STRAIGHT ACROSS HER ABDOMEN. PT REQUESTS THAT DR. HAMEED BE TOLD OF THIS DISCOMFORT. DR. HAMEED NOTIFIED PER PT REQUEST. BED RAILS UP, CALL LIGHT WITHIN REACH. PT STATES NO ADDITIONAL REQUESTS OR COMPLAINTS AT THIS TIME.
--- NOTE | 2017-09-26 15:45 | NUR ---
PT CALL LIGHT ON. PT STATES "I'M FEELING BLAH." PT CONTINUES TO REPORT "ACHING" PAIN ACROSS HER ABDOMEN AND A HEADACHE. ASSESSEMENT DONE. VITALS TAKEN. BED RAILS UP. CALL LIGHT DIRK REACH.
--- NOTE | 2017-09-26 16:00 | NUR ---
ASSITED PT TO BEDSIDE COMODE, GAIT STEADY. PT RETURNED TO SIDE OF BED TO EAT DINNER, CALL LIGHT WITHIN REACH, NO FURTHER REQUESTS AT THIS TIME.
--- NOTE | 2017-09-26 17:03 | NUR ---
PT HERE FOR CELLULITIS OF RIGHT FOOT AND UTI. SBA, FWW. ADA DIET, 1800 CALORIES. SMALL BM TODAY, SENNA AND MIRALAX GIVEN. 1L O2 NC. BLOOD SUGAR CHECKS AT MEALS. PIV IN LEFT AC, SL. PRN ZOFRAN, TYLENOL, AND MOTRIN. PT EXPERIENCED SOME INSOMNIA LAST NIGHT. NOTIFIED. PT USES CALL LIGHT AT TIMES, BED ALARM USED TODAY.
--- NOTE | 2017-09-26 17:38 | NUR ---
PT CALL LIGHT ON. PT REQUESTS EYE DROPS AND COOL WASHCLOTH FOR FACE. PROVIDED PER PT REQUEST. PT O2 NOT ON. PT AGREES TO WEAR O2 NC. RESONING EXPLAINED AND PT VERBALIZES UNDERSTANDING. PT ASSTED BACK TO BED. BED RAILS UP. CALL LIGHT WITHIN REACH.
--- NOTE | 2017-09-26 17:47 | NUR ---
PATIENT IS SITTING UP IN BED. RN IN ROOM. CALL LIGHT WITHIN REACH. NO OTHER NEEDS AT THIS TIME.
--- NOTE | 2017-09-26 19:05 | NUR ---
BEDSIDE REPORT RECEIVED FROM ENRRIQUE LUGO. PT AWAKE, IN BED, DROWSY, STATES JUST WOKE UP FROM NAP. PT ON 1L NC. NO REQUESTS AT THIS TIME. IV SALINE LOCKED.
--- NOTE | 2017-09-26 19:29 | NUR ---
THIS SHINGLE GRADER ASSISTED PATIENT UP FROM BATHROOM TO SINK. PATIENT STATED SHE HAD A SORE SPOT UNDER THE FOLDS OF HER BELLY. PATIENT HAS SMALL ABRASIONS FROM ATTENDS AROUND WAIST. BARRIER CREAM APPLIED. RN NOTIFIED. ASSISTED PATIENT WITH ORAL AND DENTURE CARE. PATIENT SITTING IN BEDSIDE RECLINER. CALL LIGHT IN REACH. NO OTHER NEEDS AT THIS TIME.
--- NOTE | 2017-09-26 20:51 | NUR ---
PT CALLED TO GO TO BED. ASSISTED INTO CLEAN PJ'S FROM HOME, ASSISTED OUT OF CHAIR, TO BATHROOM WITH HER FRONT WHEELED WALKER. ASSISTED TO BED, O2 IN PLACE 1L NC. CALL LIGHT WITHIN HER REACH. NO OTHER NEEDS AT THIS TIME.
--- NOTE | 2017-09-26 21:30 | NUR ---
PT APPEARS TO BE SLEEPING, EYES CLOSED, BREATHING NON-LABORED, OXYGEN 1L NC ON.
--- NOTE | 2017-09-26 22:20 | NUR ---
PT ASSESSMENT COMPLETE, PT ON 1L OXYGEN BY NC, DRY COUGH, LUNGS CLEAR THROUGHOUT ALL LOBES. PT DENIES PAIN. C/O CRAMPS IN ABD, "NEED TO HAVE BM". CBG 256, 5 UNITS NOVOLOG ADMINISTERED. BOWEL TONES ACTIVE X 4, ABD SOFT, NON-TENDER. HR REGULAR RHYTHM. SBA WITH FWW TO RESTROOM, PT INSTRUCTED TO USE CALL LIGHT WHEN FINISHED.
--- NOTE | 2017-09-26 23:20 | NUR ---
IN PT ROOM, ASSISTED PT TO REPOSITION HIGHER IN BED WITH TOBY GUSTAFSON ASSIST. LIGHTS OFF IN PT ROOM, PT REQUESTING TO SLEEP, NO ADDL REQUESTS. CALL LIGHT IN REACH.
--- NOTE | 2017-09-27 00:43 | NUR ---
ASSISTED PATIENT FROM BATHROOM TO BED. CALL LIGHT IN REACH.
--- NOTE | 2017-09-27 01:06 | NUR ---
1 PA TO THE BATHROOM AND BACK TO BED USING WALKER. CALL LIGHT WITHIN REACH.
--- NOTE | 2017-09-27 01:40 | NUR ---
LIGHTS OFF IN PT ROOM, PT APPEARS TO BE SLEEPING, BREATHING NON-LABORED, NC ON PT WITH 1L OXYGEN.
--- NOTE | 2017-09-27 04:18 | NUR ---
PT SLEEPING ON LEFT SIDE, NC ON, RR 16. LIGHTS OFF IN ROOM. WILL CONTINUE TO MONITOR.
--- NOTE | 2017-09-27 04:50 | NUR ---
CALL LIGHT ANSWERED, SBA WITH FWW TO RESTROOM FOR 300 ML VOID. PT C/O 5/10 PAIN IN RIGHT LEG, PALACIOS, PRN TYLENOL 650 MG ADMINISTERED. PRN EYE DROPS ALSO ADMINISTERED AT THIS TIME. LUNGS CLEAR THROUGHOUT ALL LOBES. BOWEL TONES ACTIVE X 4. REDNESS NOTED ON RLE, UNCHANGED FROM BEGINNING OF SHIFT. PT CONTINUES ON 1L OXYGEN BY NC. ASSISTED TO REPOSITION IN BED, GIVEN FRESH ICE WATER, NO ADDL REQUESTS.
--- NOTE | 2017-09-27 05:43 | NUR ---
PT ON 1L OXYGEN NC THROUGHOUT SHIFT. COMPLAINTS OF CONSTIPATION THROUGHOUT SHIFT, RECEIVING SENNA AND MIRALAX, ONE SMALL BM THIS SHIFT. RECEIVED PRN TYLENOL X 1 FOR PALACIOS, RIGHT LOWER LEG PAIN. LEG REMAINS RED, CSM INTACT BLE, BUE WITH TRACE EDEMA RLE. IV SALINE LOCKED. CALLING APPROPRIATELY FOR VOIDS, INCONTINENT X 2 DUE TO URGENCY.
--- NOTE | 2017-09-27 07:20 | EKG ---
[facility] [address] [facility] [place] [address] Signed Normal sinus rhythm Right bundle branch block Left anterior fascicular block Bifascicular block Abnormal ECG When compared with ECG of 03-SEP-2017 15:37, premature ventricular complexes are no longer present Confirmed by MYRNA CAMACHO MD ([id number]) on 09/27/2017 7:19:59 AM Electronically Signed By: MYRNA CAMACHO MD 09/27/17 0720 PATIENT NAME: Dong AMADOR Electrocardiogram DATE OF : [birth year] PHYSICIAN: MYRNA CAMACHO MD REPORT #: [id number] REPORT IS CONFIDENTIAL AND NOT TO BE RELEASED WITHOUT AUTHORIZATION
--- NOTE | 2017-09-27 07:28 | NUR ---
BEDSIDE RPEORT FROM SHAINA, HAYDEE RESTING QUIELTY IN BED EYES CLOSED, RR EVEN AT 18 BPM NO DISTRESS NOTED. PT APPEARS TO BE SLEEPING AT THIS TIME
--- NOTE | 2017-09-27 07:45 | NUR ---
THIS PLUMBER CUB ASSISTED PATIENT UP TO BATHROOM. PATIENT WASHED FACE AND HANDS WITH WARM WASH CLOTH. PATIENT UNDERSTANDS TO PULL THE CALL CORD WHEN READY TO GET UP. PATIENT STATED SHE SLEPT WELL LAST NIGHT. RN IN ROOM. NO OTHER NEEDS AT THIS TIME.
--- NOTE | 2017-09-27 08:00 | NUR ---
PATIENT BACK TO BED FROM BATHROOM WITH STAND BY ASSIST WITH FWW. PATIENT SITTING UP ON THE SIDE OF BED EATING BREAKFAST. PATIENT WOULD LIKE TO SHOWER LATER TODAY. CALL BUTTON IN REACH. NO OTHER NEEDS AT THIS TIME.
--- NOTE | 2017-09-27 10:17 | NUR ---
PATIENT RESTING IN BED WITH SON IN ROOM. PATIENT STATES THAT SHE WASHED HER HANDS AND FACE ALONG WITH ORAL CARE UP AT THE BATHROOM SINK EARLIER THIS AM. CALL BUTTON IN REACH. NO OTHER NEEDS AT THIS TIME.
[2017-09-27] MEDS ORDERED: LEVAQUIN500 MG PO (11:39)
--- NOTE | 2017-09-27 12:12 | NUR ---
PATIENT WALKING WITH PT.
--- NOTE | 2017-09-27 12:20 | NUR ---
ELOY WITH PHARMACY FOR MEDICATION CONSULTATION AT THIS TIME.
--- NOTE | 2017-09-27 12:45 | NUR ---
PATIENT SITTING ON THE EDGE OF BED WITH DINNER TRAY RN IN ROOM.
--- NOTE | 2017-09-27 14:00 | NUR ---
PT REPORTED DIZZINESS TO MOIZ OSUNA ASSISTING HER BACK TO BED FROM BATHROOM. V/S STABLE. NOTIFIED. REQUESTED ORTHO STATIC V/S.
--- NOTE | 2017-09-27 14:52 | NUR ---
PT SITTING ON SIDE OF BED, WELCOMED ME IN. SHE IS ALERT AND ORIENTED-WAITING FOR IT CONSULTING DIRECTOR TO COME AND ASSIST HER WITH A SHOWER. HAD A DELIGHTFUL CONVERSATION, FOLLOWED BY PRAYER. SHE IS TO BE DC'D FOLLOWING SHOWER. SHE REQUESTED I CONTACT HER MUD LOGGER, WHICH I DID.
--- NOTE | 2017-09-27 15:00 | NUR ---
PATIENT UP TO SHOWER WITH STAND BY ASSIST WITH FWW. PATIENT DRESSED IN CLOTHES TO GO HOME AND BATHROOM BLOW DRYING HER HAIR.
--- NOTE | 2017-09-27 15:37 | NUR ---
ORTHO STATIC V/S COMPLETE AFTER PT TOOK SHOWER WITH NO FURTHER REPORT OF DIZZINESS. ORTHOS NEGATIVE FOR CONCERN
== END 2017-09-27 15:30 | disposition home or self-care (01) ==
LOC: ED 18:52 → MS 18:54
PROVIDERS: ADMIT Internal Medicine
DX: N39.0 Urinary tract infection, site not specified (principal); L03.115 Cellulitis of right lower limb; E11.9 Type 2 diabetes mellitus without complications; I10 Essential (primary) hypertension; E03.9 Hypothyroidism, unspecified; K21.9 Gastro-esophageal reflux disease without esophagitis; M81.0 Age-related osteoporosis without current pathological fracture; F51.04 Psychophysiologic insomnia; G89.4 Chronic pain syndrome; K59.09 Other constipation; Z88.1 Allergy status to other antibiotic agents; Z88.0 Allergy status to penicillin; Z79.82 Long term (current) use of aspirin; Z79.4 Long term (current) use of insulin; Z79.899 Other long term (current) drug therapy
CPT/HCPCS: 36415; 71045; 80048; 80053; 81001; 83605; 83735; 84100; 85025; 87040; 87088; 93005; 93010; 96372; 96374; 96375; 96376; 97110; 97116; 97163; 97165; 97530; 97535; 99285; G0378; G8978; G8979; J0696; J1650; J2405; J7030

== ENCOUNTER 2017-10-22 20:09 | Emergency (ER) | payer MEDICARE, OTHER ==
[~2017-10-22] VITALS: Ht 147.3 cm; Wt 79.8 kg
--- OUTSIDE RECORDS SUMMARY | ~2017-10-22 | XMS | Clinical Summary ---
Demographics + + + | Address | [address] | | | [place] [address] | + + + | Home Phone | | + + + | Preferred Language | Unknown | + + + | Marital Status | Single | + + + | Hindu Affiliation | ADV | + + + | Race | or | + + + | Ethnic Group | Not or | + + + Author + + + | Author | [facility] | + + + | Organization | [facility] | + + + | Address | Unknown | + + + | Phone | Unavailable | + + + Support + + + + + | Name | Relationship | Address | Phone | + + + + + | CUONG AMADOR | ECON | [address] | | | | | [address] | | | | | [address] | | + + + + + Care Team Providers + +------+ + | Care Supervisor Ordnance Truck Installation Name | Role | Phone | + +------+ + | Damion Quispe MD | PP | Unavailable | + +------+ + Source Comments MAAME is fully live on both [facility] and [facility] Allergies No Known Allergies Current Medications + + +-------+---------+------+------+-------+ | Prescription | Sig. | Disp. | Refills | Star | End | Statu | | | | | | t | Date | s | | | | | | Date | | | + + +-------+---------+------+------+-------+ | glipiZIDE 10 mg | Take 10 mg by mouth | | | | | Activ | | Oral Tablet | once daily. | | | | | e | + + +-------+---------+------+------+-------+ | levothyroxine | Take 100 mcg by | | | | | Activ | | (SYNTHROID) 100 mcg | mouth once daily. | | | | | e | | Oral Tablet | | | | | | | + + +-------+---------+------+------+-------+ | ranitidine | Take 150 mg by mouth | | | | | Activ | | (ZANTAC) 150 mg Oral | two times daily. | | | | | e | | Tablet | | | | | | | + + +-------+---------+------+------+-------+ | gabapentin 300 mg | Take 300 mg by mouth | | | | | Activ | | Oral Tablet | once daily. | | | | | e | + + +-------+---------+------+------+-------+ | Melatonin 3 mg | Take by mouth. | | | | | Activ | | Oral Tablet | | | | | | e | + + +-------+---------+------+------+-------+ | aspirin EC 81 mg | Take 81 mg by mouth | | | | | Activ | | Oral Tablet, Delayed | once daily. | | | | | e | | Release (E.C.) | | | | | | | + + +-------+---------+------+------+-------+ | metoprolol 6.25 mg | Take 2 Tabs by mouth | 120 | 1 | 10/1 | | Activ | | Oral Tablet | every six hours. | | | 08/09 | | e | | | | | | 09 | | | + + +-------+---------+------+------+-------+ | metronidazole 500 | Take 1 Tab by mouth | 9 | 0 | 10/1 | | Activ | | mg Oral Tablet | three times daily. | | | 220 | | e | | | To discontinue on | | | 09 | | | | | // | | | | | | + + +-------+---------+------+------+-------+ | nitroglycerin 0.4 | Place 1 Tab under | 10 | 0 | 10/1 | | Activ | | mg Sublingual | tongue every five | | | 2/20 | | e | | Tablet, Sublingual | minutes as needed | | | 09 | | | | | for chest pain. Do | | | | | | | | not crush. Place | | | | | | | | under tongue and | | | | | | | | allow to dissolve. | | | | | | | | Administer every 5 | | | | | | | | minutes for a | | | | | | | | maximum of 3 doses | | | | | | | | in 15 minutes. | | | | | | + + +-------+---------+------+------+-------+ | amlodipine 5 mg | Take 1 Tab by mouth | 60 | 0 | 10/1 | | Activ | | Oral Tablet | two times daily. | | | 2/20 | | e | | | | | | 09 | | | + + +-------+---------+------+------+-------+ Active Problems + + + | Problem | Noted Date | + + + | Hyperkalemia | 03/30/2009 | + + + | CKD (chronic kidney disease) | 03/30/2009 | + + + + + | Overview: KIA due to dehydration 03/28 | + + Social History + +-------+ +--------+------+ | Tobacco [...] on file | | + + + Last Filed Vital Signs + + + + | Vital Sign | Reading | Time Taken | + + + + | Blood Pressure | 143/53 | 03/31/2009 11:30 AM PDT | + + + + | Pulse | 70 | 03/31/2009 11:30 AM PDT | + + + + | Temperature | 36.2 C (97.2 F) | 03/31/2009 11:30 AM PDT | + + + + | Respiratory Rate | 18 | 03/31/2009 11:30 AM PDT | + + + + | Oxygen Saturation | 95% | 03/31/2009 11:30 AM PDT | + + + + | Inhaled Oxygen | - | - | | Concentration | | | + + + + | Weight | 90.4 kg (199 lb 4.7 | 03/26/2009 8:30 AM PDT | | | oz) | | + + + + | Height | 149.9 cm (4' 11") | 03/26/2009 8:30 AM PDT | + + + + | Body Mass Index | 40.25 | 03/26/2009 8:30 AM PDT | + + + + Plan of Treatment + + + + + | Health Maintenance | Due Date | Last Done | Comments | + + + + + | INFLUENZA VACCINE | | | | | (FLU SHOT) | 8 | | | + + + + + Results Not on filefrom Last 3 Months
--- OUTSIDE RECORDS SUMMARY | ~2017-10-22 | XMS | Clinical Summary ---
Demographics + + + | Home Phone | | + + + | Preferred Language | Unknown | + + + | Marital Status | | + + + | Tenriism Affiliation | 1001 | + + + | Race | Unknown | + + + | Ethnic Group | Unknown | + + + Author + + + | Author | [facility] | + + + | Organization | [facility] | + + + | Address | Unknown | + + + | Phone | Unavailable | + + + Support + + + + + | Name | Relationship | Address | Phone | + + + + + | Chadwick Vázquez | ECON | [place], | | | | | [place] [address] | | + + + + + Care Team Providers + +------+ + | Care Cognos Administrator Name | Role | Phone | + [...]
--- OUTSIDE RECORDS SUMMARY | ~2017-10-22 | XMS | Clinical Summary ---
Demographics + + + | Address | [address] | | | [place] [address] | + + + | Home Phone | | + + + | Preferred Language | Unknown | + + + | Marital Status | Single | + + + | Catholic Affiliation | ADV | + + + [...] [address] | | | | | [phone] | | + + + + + Care Team Providers + +------+ + | Care Regional Account Executive Name | Role | Phone | + +------+ + | Damion Quispe MD | PP | Unavailable | + +------+ + Source Comments MAAME is fully live on both [facility] and [facility]Patient.[facility] Allergies No Known Allergies Current Medications + [...]
--- OUTSIDE RECORDS SUMMARY | ~2017-10-22 | XMS | Clinical Summary ---
Demographics + + + | Home Phone | | + + + | Preferred Language | Unknown | + + + | Marital Status | | + + + | Gnosticism Affiliation | 1001 | + + + | Race | Unknown | + + + | Ethnic Group | Unknown | + + + Author + + + | Author | [facility] | + + + | Organization | [facility] | + + + | Address | Unknown | + + + | Phone | Unavailable | + + + Support + + + + + | Name | Relationship | Address | Phone | + + + + + | Chadwick Vázquez | ECON | [place], | | | | | [place] [address] | | + + + + + Care Team Providers + +------+ + | Care Tab Cutting Machine Operator Name | Role | Phone | + [...]
[~2017-10-22 20:09] MED LIST changes: +CITRACAL-VIT D1 EAC1 PO; +COL-RITE100 MG PO; +LEVAQUIN500 MG PO; +NORVASC2.5 MG PO; +REFRESH TEARS15 ML OU
--- NOTE | 2017-10-23 13:31 | EKG ---
[facility] [address] [facility] [place] [address] Signed Normal sinus rhythm Left axis deviation Right bundle branch block Abnormal ECG When compared with ECG of 25-SEP-2017 08:53, No significant change was found Confirmed by ANTWAN DUMONT MD ([id number]) on 10/23/2017 1:31:31 PM Electronically Signed By: ANTWAN DUMONT MD 10/23/17 1331 PATIENT NAME: Dong AMADOR Electrocardiogram DATE OF : [birth year] PHYSICIAN: ANTWAN DUMONT MD REPORT #: [id number] REPORT IS CONFIDENTIAL AND NOT TO BE RELEASED WITHOUT AUTHORIZATION
== END 2017-10-23 00:15 | disposition home or self-care (01) ==
LOC: ED 20:09
DX: R07.9 Chest pain, unspecified (principal); E11.9 Type 2 diabetes mellitus without complications; I10 Essential (primary) hypertension; E03.9 Hypothyroidism, unspecified; K21.9 Gastro-esophageal reflux disease without esophagitis; Z88.0 Allergy status to penicillin; Z88.1 Allergy status to other antibiotic agents; Z79.899 Other long term (current) drug therapy; Z79.4 Long term (current) use of insulin; Z79.82 Long term (current) use of aspirin
CPT/HCPCS: 71045; 80053; 84484; 85025; 93005; 93010; 96374; 96375; 99284; J2270; J2405

== ENCOUNTER 2017-11-19 16:01 | Inpatient (IN) | payer MEDICARE, OTHER ==
[~2017-11-19] VITALS: Ht 147.3 cm; Wt 80.0 kg
[2017-11-19] MEDS ORDERED: NITROFURANTOIN100 MG PO (16:18)
[2017-11-19] MEDS ORDERED: CRANBERRY500 MG PO (16:19)
--- NOTE | 2017-11-19 18:57 | NUR ---
PT USING INSENTIVE SPIROMETRY UP TO 2500 MLS. ENCOURAGED PT TO USE IT 10 TIMES EVERY HOUR.
--- NOTE | 2017-11-19 20:30 | NUR ---
REPORT RECEIVED FROM ENRRIQUE DAY. PT ARRIVED TO ROOM 128 VIA STRETCHER AT 1930, AND WAS TRANSFERRED TO BED VIA DRAW SHEET. PT IS ALERT/ORIENTED, REPORTS DIZZINESS. ALSO REPORTS 6/10 HEADAHCE PAIN, PRN TYLENOL GIVEN. PT ALSO REPORTS NAUSEA, PRN ZOFRAN GIVEN. LUNGS CLEAR, 2L O2 VIA NC IN PLACE. HR REGULAR. BOWEL TONES ACTIVE, ABDOMEN, SOFT AND NON-TENDER. SKIN APPEARS GROSSLY INTACT, NO EDEMA NOTED. IV SITES PATENT. CB, 1 UNITS SLIDING SCALE GIVEN. PT REPORTS SHE IS INCONTINENT AT BASELINE AND HAS NOT YET VOIDED, WILL CONTINUE TO MONITOR. CALL LIGHT IS WITHIN REACH.
--- NOTE | 2017-11-19 21:00 | NUR ---
PT INCONTINENT OF URINE, UP TO BSC WITH 2-PA, AND PT VOIDED 200ML. NEW ATTENDS AND CHUX PROVIDED. PT REPORTS DIZZINESS AND UPON RETURNING TO BED STATES SHE FEELS CHEST PRESSURE "LIKE SOMETHING IS SITTING ON MY CHEST." VSS. PT HAD REMOVED OXYGEN PRIOR TO GETTING OUT OF BED, SATS WERE 90%, REPLACED 2L AND SATS INCREASED TO 96-97%. BP: 140/52 (74), NO ST CHANGES NOTED ON KILN CAR REPAIRER. DR. DUMONT CALLED AND UPDATED, STATES HE IS AWARE OF THIS AND THAT PT REPORTED SIMILAR SYMPTOMS IN E.D. AND EKG WAS NORMAL. NO NEW ORDERS RECEIVED AT THIS TIME, WILL CONTINUE TO MONITOR FOR NOW.
--- NOTE | 2017-11-19 23:49 | NUR ---
ASSESSMENT COMPLETED. PT REPORTING NAUSEA, DR. DUMONT CALLED AND NEW ORDER RECEIVED FOR PHENERGAN 6.25-12.5MG IV Q6 PRN. 6.25MG ADMINISTERED AT THIS TIME. LUNGS REMAIN CLEAR, SLIGHTLY DIM IN BASES, 2L O2 VIA NC. HR REGULAR. BOWEL TONES REMAIN ACTIVE. IVF INFUSING WNL. PT WAS INCONTINENT OF URINE, NEW ATTENDS IN PLACE, VICTORINO-CARE PROVIDED. CALL LIGHT IS WITHIN REACH.
--- NOTE | 2017-11-19 23:54 | NUR ---
PT DESATURATING TO LOW 80% WHILE SLEEPING, PT BREATHES THROUGH MOUTH, OXYMASK PLACED ON PT.
--- NOTE | 2017-11-20 00:26 | NUR ---
PT CONTINUES TO REPORT NAUSEA AND A HEADACHE. PRN TYLENOL GIVEN AND TITRATED TO FULL DOSE OF PRN PHENERGAN. WILL CONTINUE TO MONITOR.
--- NOTE | 2017-11-20 00:57 | NUR ---
PT INCONTINENT OF URINE, NEW ATTENDS AND VICTORINO-CARE PROVIDED. PT BOOSTED UP IN BED. CALL LIGHT WITHIN REACH. WILL CONTINUE TO MONITOR.
--- NOTE | 2017-11-20 02:15 | NUR ---
PT CALLED AND REPORTS BEING COLD, ROOM TEMP INCREASED TO 74 DEGREES AND WARM BLANKET PROVIDED.
--- NOTE | 2017-11-20 04:22 | NUR ---
PT SLEEPING AT THIS TIME, NO APPARENT DISTRESS. RESPIRATIONS EVEN AND UNLABORED, RR:16, SPO2:96% ON 3L VIA OXYMASK. HR:78. WILL ALLOW FOR REST AND CONTINUE TO MONITOR.
--- NOTE | 2017-11-20 06:03 | NUR ---
PT WOKE AND HAD BEEN INCONTINENT OF A VERY LARGE AMOUNT OF URINE. NEW ATTENDS, CHUX, AND DRAW SHEET IN PLACE, PERICARE PROVIDED. PT DENIES FURTHER REQUESTS AT THIS TIME, WILL CONTINUE TO MONITOR.
--- NOTE | 2017-11-20 08:43 | NUR ---
PT C/O BEING WET. UP TO BEDSIDE COMMODE, COMPLETE BEDBATH GIVEN, SHAMPOO AND LINE CHANGED DUE TO BED BEING WET ALSO. PT THEN SAT AT THE EDGE OF THE BED TO EAT BKF AND DID WELL WITH THIS, O2 VIA NC 2L'S INPLACE WITH SPO2 AT 97%. PT CONTIOUES TO SIT AT THE EDGE OF THE BED WAITING FOR HER DAUGHTER TO CALL BACK. P[T IS VERY PERTICKLER ON HOW THINGS ARE TO BE DONE AND WHERE SHE WANTS ITEMS ON HER BEDSIDE TRAY. WHILE SITTING ON THE EDGE OF THE BED, TOP SIDE RAIL UP AND BED IN THE LOWEST POSITION.
--- NOTE | 2017-11-20 08:52 | NUR ---
PT BACK TO BED AT THIS TIME.
--- NOTE | 2017-11-20 09:22 | NUR ---
DR DUMONT INTO SEE PT, IV FLUIDS DECREASED TO 65MLS/HR AT THIS TIME.
--- NOTE | 2017-11-20 10:39 | NUR ---
PT HAS BEEN UP IN THER CHAIR FROM PHYSICAL THERAPY. PT UP TO THE COMMODE VOIDED AND WAS INCONTENT IN HER ATTENDS. PT SON PRESENT AT THIS TIME. PT DID WELL WITH AMBULATION, LOTS OF ENCOURGEMENT NEEDED TO GET PT TO DUE THINGS.
--- NOTE | 2017-11-20 11:35 | NUR ---
Medications reconciled by pharmacist. No changes since last admission
--- NOTE | 2017-11-20 11:50 | NUR ---
PT UP OUT OF BED FOR LUNCH AT THIS TIME, PT STATES "I RATHER SIT AT THE EDGE" INFORMED PT THAT SHE NEEDS TO BE UP TO KEEP HER STRENGTH AND NOT LOSE HER ABILITY TO GO HOME. PT UNDERSTANDS AND WAS ABLE TO GET SELF UP OUT OF BED WALK WITH THE FFW TO THE CHAIR. PT THEN STATES "I CAN DO IT" . PT ATE LUNCH IN THE CHAIR AND CONTIOUES TO BE IN THE CHAIR AT THIS TIME.
--- NOTE | 2017-11-20 12:32 | NUR ---
PT REMAINS UP IN THE CHAIR AT THIS TIME, AND IS CURRENTLY TALKING WITH THE PHARMIST. CALL LIGHT WITHIN REACH AND PHONE WHILE PT REMAINS UP IN THE CHAIR.
--- NOTE | 2017-11-20 13:20 | NUR ---
Medications reconciled at admission by pharmacist
--- NOTE | 2017-11-20 13:23 | NUR ---
PT UP TO MATRIX REPAIRER ROOM, ATTENDS CHANGES. PT INC IN PANTS
--- NOTE | 2017-11-20 13:38 | NUR ---
REPORT CALLED TO DARRICK ALL QUESTIONS ANSWERED AT THIS TIME. PT TRANSPORTED VIA CHAIR WITH ALL HER PERSONAL BELONGINGS.
--- NOTE | 2017-11-20 14:06 | NUR ---
pt arrived to room 112 at 1345 via recliner with Olivia OSUNA. 2l [address] decreased o2 to 1L as patient was 98% saturation. transferred to BSC to urinate 200 after incontinent void. now in bed with call light and belongings in reach.
--- NOTE | 2017-11-20 14:51 | NUR ---
PATIENT RELAXING IN BED WITH EYES CLOSED. CALL LIGHT WITHIN REACH. NO OTHER NEEDS AT THIS TIME.
--- NOTE | 2017-11-20 17:24 | NUR ---
CCU TRANSFER THIS AFTERNOON. IND/SBA FWW. ENCOURAGE INDEPENDENCE. 1L 02 VIA ND. ROOM AIR AT HOME. TITRATE PRN. LR @ 65. [facility]. AA DIET-- ACCU CHECK. MAG RIDER TODAY FOR MAG 1.7. INCONTINENT OF URINE BASELINE. ATTENDS IN PLACE. GET PATIENT ON BSC TO COMPLETE EMPTYING BLADDER. SHE SEES [facility]I OUTPATIENT.
--- NOTE | 2017-11-20 17:56 | NUR ---
PT SITTING UP AT SIDE OF BED ALERT AND ORIENTED. NO DISTRESS NOTED. PT VISITING WITH STAFF.
--- NOTE | 2017-11-20 18:55 | NUR ---
PATIENT RELAXING IN BED WATCHING TV. FRESH ICE WATER. THIS SUPERVISOR SMOKE CONTROL BROUGHT THE PATIENT A SLEEP KIT. CALL LIGHT WITHIN REACH. NO OTHER NEEDS AT THIS TIME.
--- NOTE | 2017-11-20 19:10 | NUR ---
IN ROOM FOR REPORT, PT IS RESTING WITH EYES CLOSED, RESPIRATIONS ARE EVEN AND NONLABORED. CALL LIGHT IS WITHIN REACH.
--- NOTE | 2017-11-20 20:02 | NUR ---
HELPED PT TO RESTROOM AND BACK TO BED. SHE IS SITTING AT THE EDGE OF THE BED AT THIS TIME.
--- NOTE | 2017-11-20 20:16 | NUR ---
VITALS AND I&OS DONE AND CHARTED. BEDSIDE TABLE AND CALL LIGHT WITHIN REACH.
--- NOTE | 2017-11-20 20:49 | NUR ---
HELPED PT BACK TO BED AND ADMINISTERED MEDICATIONS. PT DENIES PAIN AT THIS TIME. SHE STATES SHE HAS SOME WEAKNESS BUT AMBULATED TO RESTROOM SBA WITH FWW. PT IS BACK IN BED AND DENIES FURTHER NEEDS. MAURA LIGHT IS WITHIN REACH.
--- NOTE | 2017-11-20 21:47 | NUR ---
PT IS RESTING WITH EYES CLOSED, RESPIRATIONS ARE EVEN AND NONLABORED. CALL LIGHT IS WITHIN REACH.
--- NOTE | 2017-11-20 21:55 | EKG ---
[facility] [address] [facility] [place] [address] Signed Normal sinus rhythm Left axis deviation Right bundle branch block Left anterior fascicular block Bifascicular block Abnormal ECG When compared with ECG of 22-OCT-2017 20:10, No significant change was found Confirmed by ANTWAN DUMONT MD ([id number]) on 11/20/2017 9:54:45 PM Electronically Signed By: ANTWAN DUMONT MD 11/20/17 [id number] PATIENT NAME: Dong AMADOR Electrocardiogram DATE OF : [birth year] PHYSICIAN: ANTWAN DUMONT MD REPORT #: [id number] REPORT IS CONFIDENTIAL AND NOT TO BE RELEASED WITHOUT AUTHORIZATION
--- NOTE | 2017-11-20 22:49 | NUR ---
AFTER GETTING UP TO USE THE RESTROOM PT COMPLAINED OF 6/10 HEADACHE. TYLENOL AND ICEPACK WERE PROVIDED. PT IS SITTING AT EDGE OF BED WITH CALL LIGHT IN REACH. PT DENIES FURTHER NEEDS AT THIS TIME.
--- NOTE | 2017-11-20 23:55 | NUR ---
PT IS RESTING WITH EYES CLOSED, RESPIRATIONS ARE EVEN AND NONLABORED. CALL LIGHT IS WITHIN REACH.
--- NOTE | 2017-11-21 01:15 | NUR ---
PT CALLED WITH COMPLAINTS OF A HEAVINESS IN HER CHEST AND SOB. HER VS ARE WNL WITH THE EXCEPTION OF A TEMP OF 100. HER LUNGS SOUND CLEAR BUT SHE HAS SLIGHT CRACKLES IN THE BASES. HAD RT EVALUATE PT WELL AND HE AGREES. WILL NOTIFY DR DUMONT.
--- NOTE | 2017-11-21 01:22 | NUR ---
NOTIFIED DR DUMONT OF PT'S SX. HE SAID TO GIVE HER AN EXTRA DOSE OF TYLENOL 500 MG. NO FURTHER ORDERS AT THIS TIME. WILL CONTINUE TO MONITOR.
--- NOTE | 2017-11-21 01:46 | NUR ---
ADMINISTERED 2ND DOSE OF TYLENOL. PT STATES THE HEAVINESS IN HER CHEST HAS DECREASED BUT CONTINUES TO FEEL SOB. SHE IS SITTING AT THE EDGE OF THE BED AT THIS TIME. CALL LIGHT IS WITHIN REACH.
--- NOTE | 2017-11-21 02:15 | NUR ---
HELPED PT TO THE BATHROOM AND BACK TO BED ONCE AND ALSO HELPED TO THE BSC AND BACK TO BED LATER IN THE SHIFT. FRESH ICE WATER GIVEN BOTH TIMES. BEDSIDE TABLE AND CALL LIGHT WITHIN REACH.
--- NOTE | 2017-11-21 03:01 | NUR ---
PT IS RESTING WITH EYES CLOSED, RESPIRATIONS ARE EVEN AND NONLABORED. CALL LIGHT IS WITHIN REACH.
--- NOTE | 2017-11-21 04:14 | NUR ---
PT IS RESTING WITH EYES CLOSED, RESPIRATIONS ARE EVEN AND NONLABORED. CALL LIGHT IS WITHIN REACH.
--- NOTE | 2017-11-21 05:41 | NUR ---
PT IS A SBA WITH FWW TO COMMODE OR RESTROOM. SHE HAS WEAKNESS AND DIZZINESS AT TIMES. SHE HAD AN EPISODE OF A "HEAVY FEELING IN HER CHEST" AND SOB, HER VITAL SIGNS WERE NORMAL WITH A TEMP OF 100. DR DUMONT WAS NOTIFIED AND HE ORDERED AN EXTRA DOSE OF TYLENOL. SINCE THEN THE PT HAS SLEPT BETTER. SHE IS ON 1LNC AT 94-96%.
--- NOTE | 2017-11-21 06:02 | NUR ---
PT IS RESTING WITH EYES CLOSED, RESPIRATIONS ARE EVEN AND NONLABORED. CALL LIGHT IS WITHIN REACH.
--- NOTE | 2017-11-21 06:46 | NUR ---
ADMINISTERED MEDICATIONS AND HELPED PT TO THE RESTROOM. PT DENIES PAIN AT THIS TIME.
--- NOTE | 2017-11-21 07:00 | NUR ---
VITALS AND I&OS DONE AND CHARTED. FRESH WATER GIVEN. BEDSIDETABLE AND CALL LIGHT GIVEN. GARBAGES EMPTIED.
--- NOTE | 2017-11-21 07:48 | NUR ---
MORNING ASSESSMENT AND MEDICATIONS DUE. THIS RN TO BEDSIDE. PT REPORTS NAUSEA AND COMPLAINTS OF "HEAVYNESS IN CHEST." PT STATES "I'M JUST WORRIED ABOUT LEAVING THE HOSPITAL." BLOOD SUGAR CHECKED = 88. ZOFRAN GIVEN (SEE MAR). PT ASSISTED UP TO RESTROOM, TOLERATED WELL WITH FWW. PT TOLEARTED ABULATION WELL. INCONTENANCE NOTED. PT UP TO CHAIR. ASSESSMENT DONE. MINIMAL CRACKELS NOTED IN LOWER LOBS OF LUNGS. MEDICATIONS GIVEN ORERED (SEE MAR). VITALS TAKEN. PT EATING BREAKFAST. CALL LIGHT WITHIN REACH. NO ADDITIONAL REQUESTS OR COMPLAINTS AT THIS TIME.
--- NOTE | 2017-11-21 09:03 | NUR ---
TOOK PT TO THE BR. CHANGED LINENS. WARM BLANKET. SET UP FOR BRK.
--- NOTE | 2017-11-21 11:35 | NUR ---
PIV FLUIDS DC'D PER MD ORDER. PIV SALINE LOCKED. ALCOHOL CAP IN PLACE.
--- NOTE | 2017-11-21 12:05 | NUR ---
FOCUSSED ASSESSMENT AND NOON MEDICATIONS DUE. THIS RN TO ROOM WITH MD FOR ROUNDS. PT DISCUSING PLAN OF CARE WITH MD. PT VERBALIZES UNDERSTANDING THAT SHE NEEDS TO BE UP TO CHAIR MORE OFTEN AND USE IS. PT ASSISTED UP TO RESTROOM. DEPENDS CHANGED. SUPPOSITORY GIVEN. INCONTENENCE EPISODE NOTED. CBG TAKEN = 249, SEE MAR FOR MEDICATION GIVEN. ASSESSMENT DONE. CRACKELS CONTINUE TO BE NOTED IN LOWER LOBES. PT EATING LUNCH. NO ADDITIONAL REQUESTS OR COMPLAINTS AT THIS TIME. PT STATES THE PRESSURE IN HER CHEST "HAS EASED." PT REMAINS ON 1L O2 NC. BED RAILS UP. CALL LIGHT WITHIN REACH.
--- NOTE | 2017-11-21 13:26 | NUR ---
PT WAS SITTING ON SIDE OF BED, EATING LUNCH. PT SEEMED TO BE ENJOYING LUNCH, AND HAD ALREADY EATEN HER ICE CREAM! SHE WAS A LITTLE DEPRESSED ABOUT HAVING TO COME BACK. TIRED OF BATTLING INFECTIONS, AND WEARY SOMEWHAT OF THE STRUGGLE SHE WAS ENGAGED IN. I ENCOURAGED HER TO NOT LOOK TOO FAR DOWN THE ROAD-SHE WAS ALSO CONCERNED ABOUT OTHER ISSUES THAT SEEMED TO WEIGHT HER DOWN. WE PRAYED FOR HELP FOR DEALING WITH THE INFECTION AT HAND, AND WILL WORK ON THE OTHERS AT ANOTHER TIME. 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 WILL CONTINUE TO FOLLOW NEEDED
--- NOTE | 2017-11-21 13:34 | NUR ---
ABX DUE. THIS RN TO BEDSIDE. PT BACK TO BED AFTER BM. PT REPORTS FEELING BETTER AFTER BM. ABX GIVEN ORDERED. BED RAILS UP. CALL LIGHT WITHIN REACH.
--- NOTE | 2017-11-21 15:57 | NUR ---
HELPED PT TO THE BR. PICKED UP ROOM.
--- NOTE | 2017-11-21 16:13 | NUR ---
AFTERNOON ASSESSMENT DUE. THIS RN TO BEDSIDE. PT DENIES PAIN AND NAUSEA. PT REQUESTS ASSISTANCE UP TO RESTROOM STATING, "THE ONLY DISCOMFORT I HAVE IS LIKE I NEED TO USE THE BATHROOM AGAIN." PT ASSISTED UP. PT BEGINS TO LEAK UPON STANDING. PT ABLE TO URINATE, PASSES GAS BUT NO NOTABLE BM AT THIS TIME. NEW DEPENDS PLACED. PT BACK TO BED. ASSESSMENT DONE. BED RAILS UP. CALL LIGHT WITHIN REACH.
--- NOTE | 2017-11-21 16:25 | NUR ---
CONTACT NUMBERS JAMES--SON--[phone] KRISTY--SILVANA--[phone] CUONG--[phone] ALEXEY--[phone]
--- NOTE | 2017-11-21 17:15 | NUR ---
NOTIFIED OF PT REPORTS OF CHEST TIGHTNESS AND SHE FEELS REPORTS FEELING LIKE SHE IS BURNING UP. V/S STABLE, AFEBRILE. MD ORDERED EKG AND TO GIVE TYLENOL.
--- NOTE | 2017-11-21 17:25 | NUR ---
MEDICATIONS DUE. THIS RN TO BEDSIDE. RT AT BEDSIDE DOING EKG. MEDICATIONS GIVEN ORDERED. PT CONVERSING WITH RT. CONTINUES TO REPORT 5/10 CHEST PAIN, MD AWARE. ICE WATER REFILLED. BED RAILS UP. CALL LIGHT WITHIN REACH. PT CONTINUES WORKING WITH RT. PT JOKING AND LAUGHING.
--- NOTE | 2017-11-21 18:08 | NUR ---
PT HERE FOR SEPSIS R/T PYELONEPHRITIS. SBA, FWW. ADA DIET. PT REPORTING CHEST TIGHTNESS TODAY. EKG AND ECHO DONE. BLOOD SUGAR CHECKS. 1L O2 NC. NO O2 AT BASELINE. PT INCONTINENT. DEPENDS IN PLACE. PHYSICAL THERAPY WORKING WITH PT TODAY. PIV NOW SALINE LOCKED. GOOD INTAKE AND OUTPUT TODAY. PT USING CALL LIG APPROPIRATLY. 2100 LEVIMIR DOSE PRE DRAWIN IN KITS LIST.
--- NOTE | 2017-11-21 19:18 | NUR ---
BEDSIDE REPORT RECEIVED FROM ENRRIQUE LUGO. PT SITTING UP IN CHAIR, ON 1L OXYGEN BY CHESLEA. IV SITES SALINE LOCKED. CALL LIGHT IN REACH. DOOR SHUT PER PT REQUEST, NO ADDL REQUESTS.
--- NOTE | 2017-11-21 21:10 | NUR ---
PT ASSESSMENT COMPLETE AT THIS TIME, PT AWAKE, LYING IN BED, ON ROOM AIR AT THIS TIME. LUNGS CLEAR, FINE CRACKLES RIGHT LOWER LOBE. PT C/O 5/10 PALACIOS, PRN TYLENOL ADMINISTERED. BOWEL TONES HYPOACTIVE X 4. ABD SOFT, NON TENDER. IV SALINE LOCKED WNL RIGHT FOREARM, IV IN LEFT AC INFILTRATED D/C'D WNL. CBG 227, SS INSULIN ADMINISTERED. PT GIVEN ICE WATER, ICE PACK FOR FOREHEAD. CALL LIGHT IN REACH. DENIES TOILETING NEEDS AT THIS TIME.
--- NOTE | 2017-11-21 21:12 | EKG ---
[facility] [address] [facility] [place] [address] Signed Sinus rhythm with premature atrial complexes Right bundle branch block Left anterior fascicular block Bifascicular block Abnormal ECG When compared with ECG of 19-NOV-2017 17:30, premature atrial complexes are now present Confirmed by ANTWAN DUMONT MD ([id number]) on 11/21/2017 9:12:10 PM Electronically Signed By: ANTWAN DUMONT MD 11/21/17 2112 PATIENT NAME: Dong AMADOR Electrocardiogram DATE OF : [birth year] PHYSICIAN: ANTWAN DUMONT MD REPORT #: [id number] REPORT IS CONFIDENTIAL AND NOT TO BE RELEASED WITHOUT AUTHORIZATION
--- NOTE | 2017-11-21 21:14 | NUR ---
ASSISTED PATIENT TO BATHROOM AND BACK TO BED USING WALKER. V/S AND I/O TAKEN. CALL LIGHT WITHIN REACH.
--- NOTE | 2017-11-21 22:17 | NUR ---
IN PT ROOM FOR VENDING ROUTE DRIVER, PT SLEEPING, SNORING, ON ROOM AIR, AWKENS TO VOICE. IV ABT INFUSING AT THIS TIME. CALL LIGHT IN REACH.
--- NOTE | 2017-11-21 23:38 | NUR ---
PATIENT CALLED TO USE THE BATHROOM. 1 PA USING WALKER. PATIENT IS BACK IN BED. CALL LIGHT WITHIN REACH.
--- NOTE | 2017-11-22 00:37 | NUR ---
CHECKED ON PT, APPEARS TO BE SLEEPING AT THIS TIME, EYES CLOSED, SNORING, VISIBLE CHEST RISE. LIGHTS OFF IN ROOM.
--- NOTE | 2017-11-22 02:00 | NUR ---
CALL LIGHT ANSWERED, SBA TO RESTROOM FOR VOID W FWW, INCONTINENT OF URINE IN ATTENDS, ATTENDS CHANGED. STAND BY ASSIST WITH FWW BACK TO BED. LUNGS CLEAR THROUGHOUT ALL LOBES, NO ADVENTITIOUS SOUNDS NOTED. PT USING IS INSTRUCTED, 500 ML BEST EFFORT. PT ON ROOM AIR. BOWEL TONES ACTIVE X 4, ABD SOFT. PT DENIES PAIN. ASSISTED TO REPOSITION IN BED, LEGS ELEVATED, MINIMAL EDEMA NOTED BILATERALLY LOWER EXTREMITIES, NO CHANGE FROM BEGINNING OF SHIFT. CALL LIGHT IN REACH, LIGHTS OFF IN ROOM.
--- NOTE | 2017-11-22 04:00 | NUR ---
CALL LIGHT ANSWERED, TOBY GUSTAFSON IN ROOM TO ASSIST PT TO RESTROOM AT THIS TIME.
--- NOTE | 2017-11-22 04:27 | NUR ---
PATIENT CALLED TO USE THE BATHROOM. CHANGED SOAKED PULL UPS AND PAD. PATIENT IS BACK IN BED. CALL LIGHT IN REACH.
--- NOTE | 2017-11-22 05:47 | NUR ---
PT USING CALL LIGHT APPROPRIATELY, 1PA WITH FWW TO RESTROOM FOR QUANITY SUFFICIENT VOIDS, INCONTINENT OF URINE IN ATTENDS. LUNGS CLEAR WITH IS AND COUGHING. IV SALINE LOCKED. PT ON ROOM AIR THIS SHIFT, SATURATIONS WNL.
--- NOTE | 2017-11-22 06:10 | NUR ---
SBA WITH FWW FOR ORAL CARE, PT UP IN CHAIR AT THIS TIME. IV ANTIBIOTIC INFUSING WNL. PT GIVEN WARM PACK REQUESTED FOR PALACIOS, STATES "TYLENOL DOESN'T TOUCH IT". PT HAS PERSONAL SUPPLIES AND CALL LIGHT IN REACH.
--- NOTE | 2017-11-22 08:11 | NUR ---
PT SITTING UP AT EDGE OF BED, EATING BREAKFAST. PERSONAL SUPPLIES AND CALL LIGHT IN REACH. REPORTS HEADACHE, RATES PAIN 4/10.
--- NOTE | 2017-11-22 08:20 | NUR ---
GAVE ACETAMINOPHEN 500 MG PO PRN FOR C/O 4/10 HEADACHE PAIN.
--- NOTE | 2017-11-22 09:54 | NUR ---
PT UP, AMBULATING IN HALLS USING FWW, WITH CLAUDIO, PHYSICAL THERAPIST. APPEARS TO BE TOLERATING WELL.
--- NOTE | 2017-11-22 10:23 | NUR ---
PT UP WALKING IN HALLS WITH Desirae SNYDER. CLAUDIO HAS HER ON A MISSION, AND PT SEEMS TO BE RESPONDING. 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 SHE SEEMED TO REALLY ENJOY HIS VISIT. WILL CONTINUE TO FOLLOW NEEDED
--- NOTE | 2017-11-22 11:59 | NUR ---
DR. DUMONT IN WITH PT, DISCUSSED PLAN FOR DISCHARGE WITH PT. PT ASKED QUESTIONS, WHICH DR. DUMONT ANSWERED. PT VERBALIZED UNDERSTANDING.
[2017-11-22] MEDS ORDERED: CEPHALEXIN500 MG PO (12:34)
--- NOTE | 2017-11-22 12:42 | NUR ---
PT ASSISTED FROM BATHROOM AFTER VOIDING URINE IN HAT. PT AMBULATED TO BED WITH FWW WITH STANDBY ASSIST. ASSISTED TO POSITION FOR COMFORT.
--- NOTE | 2017-11-22 13:12 | NUR ---
MARIAMA, PHARMACIST IN TO SEE PT TO GIVE DISCHARGE EDUCATOIN.
== END 2017-11-22 14:00 | disposition home or self-care (01) | DRG 872 ==
LOC: ED 16:01 → CCU 18:33 → MS 11-20 13:44
PROVIDERS: ADMIT Internal Medicine
DX: A41.51 Sepsis due to Escherichia coli [E. coli] (principal); N10 Acute pyelonephritis; M62.81 Muscle weakness (generalized); R07.89 Other chest pain; I10 Essential (primary) hypertension; E03.9 Hypothyroidism, unspecified; K21.9 Gastro-esophageal reflux disease without esophagitis; F51.04 Psychophysiologic insomnia; E11.42 Type 2 diabetes mellitus with diabetic polyneuropathy; Z66 Do not resuscitate; Z79.82 Long term (current) use of aspirin; Z79.4 Long term (current) use of insulin; Z79.899 Other long term (current) drug therapy; Z88.1 Allergy status to other antibiotic agents; Z88.0 Allergy status to penicillin
CPT/HCPCS: 36415; 80053; 81001; 83605; 83735; 85025; 87040; 87088; 93005; 93010; 93306; 94640; 97110; 97116; 97161; J0690; J0692; J0735; J1100; J1650; J1815; J1885; J1956; J2250; J2405; J2550; J2704; J3475; J7120